=== PATIENT | male | born 1935 | race Two or more races ===

== ENCOUNTER → 2017-07-17 | Outpatient (CLI) | payer OTHER ==
[~2017-07-17] MED LIST: ANTIVERT25 M1 PO
== END | disposition home or self-care (01) ==
LOC: MRI 10:06
DX: M54.17 Radiculopathy, lumbosacral region (principal)
CPT/HCPCS: 72148

== ENCOUNTER 2018-06-16 08:57 | Outpatient (CLI) | payer OTHER ==
[2018-06-22] MEDS ORDERED: COZAAR50 MG (15:46)
== END 2018-06-16 09:09 | disposition home or self-care (01) ==
LOC: TOM 08:57
DX: R10.9 Unspecified abdominal pain (principal)

== ENCOUNTER → 2018-06-22 | Emergency (ER) | payer OTHER ==
[~2018-06-22] VITALS: Ht 170.2 cm; Wt 73.9 kg
[~2018-06-22] MED LIST changes: +COZAAR50 MG
== END | disposition home or self-care (01) ==
LOC: ER 14:54
DX: B34.9 Viral infection, unspecified (principal); J11.1 Influenza due to unidentified influenza virus with other respiratory manifestations

== ENCOUNTER → 2018-08-30 | Outpatient (CLI) | payer OTHER | END | disposition home or self-care (01) | LOC: TOM 09:26 | DX: R10.84 Generalized abdominal pain (principal) | CPT/HCPCS: 74178; Q9965 ==

== ENCOUNTER → 2018-09-06 | Outpatient (CLI) | payer OTHER | END | disposition home or self-care (01) | LOC: NUCLEAR 09-01 08:00 | DX: C61 Malignant neoplasm of prostate (principal) | CPT/HCPCS: 78306; 78320; A9503 ==

== ENCOUNTER 2019-11-04 10:02 | Outpatient (CLI) | payer OTHER | END 2019-11-04 10:07 | disposition home or self-care (01) | LOC: RAD 10:02 | PROVIDERS: ATTEND Internal Medicine Rheumatology | DX: M17.0 Bilateral primary osteoarthritis of knee (principal); M19.042 Primary osteoarthritis, left hand; M19.041 Primary osteoarthritis, right hand ==

== ENCOUNTER 2019-11-04 11:58 | Outpatient (CLI) | payer OTHER | END 2019-11-04 13:55 | disposition home or self-care (01) | LOC: LAB 11:58 | DX: Z20.828 Contact with and (suspected) exposure to other viral communicable diseases (principal); Z11.59 Encounter for screening for other viral diseases ==

== ENCOUNTER → 2019-11-18 | Outpatient (CLI) | payer OTHER | END | disposition home or self-care (01) | LOC: MRI 12:36 | PROVIDERS: ATTEND Neuromusculoskeletal Medicine, Sports Medicine | DX: M25.562 Pain in left knee (principal) | CPT/HCPCS: 73721 ==

== ENCOUNTER 2020-03-20 20:16 | Emergency (ER) | payer OTHER ==
[~2020-03-20] VITALS: Ht 172.7 cm; Wt 73.0 kg
[2020-03-21] MEDS ORDERED: INTESTINEX680 M1 PO (03:29)
[2020-03-21] MEDS ORDERED: CIPRO500 MG PO (03:29)
== END 2020-03-21 03:43 | disposition home or self-care (01) ==
LOC: ER 20:16
DX: K62.5 Hemorrhage of anus and rectum (principal); Z03.818 Encounter for observation for suspected exposure to other biological agents ruled out

== ENCOUNTER → 2020-05-25 | Outpatient (CLI) | payer OTHER ==
[~2020-05-25] MED LIST changes: +CIPRO500 MG PO; +INTESTINEX680 M1 PO
== END | disposition home or self-care (01) ==
LOC: PPH VACUNA 02:43
PROVIDERS: ATTEND Emergency Medicine Pediatric Emergency Medicine
DX: Z23 Encounter for immunization (principal)

== ENCOUNTER → 2020-11-20 08:33 | Outpatient (CLI) | payer OTHER | END | disposition home or self-care (01) | LOC: MRI 08:33 | DX: M25.511 Pain in right shoulder (principal); S43.491A Other sprain of right shoulder joint, initial encounter | CPT/HCPCS: 73221 ==

== ENCOUNTER 2020-12-13 10:29 | Outpatient (CLI) | payer OTHER | END 2020-12-13 15:00 | disposition home or self-care (01) | LOC: RAD 10:29 | PROVIDERS: ATTEND Internal Medicine Cardiovascular Disease | DX: M25.511 Pain in right shoulder (principal) ==

== ENCOUNTER 2021-02-08 08:00 | Outpatient (CLI) | payer OTHER | END 2021-02-08 08:30 | disposition home or self-care (01) | LOC: PPH VACUNA 08:00 | PROVIDERS: ATTEND Emergency Medicine Pediatric Emergency Medicine | DX: Z23 Encounter for immunization (principal) ==

== ENCOUNTER 2021-04-25 06:44 | Outpatient (CLI) | payer OTHER | END 2021-04-25 07:00 | disposition home or self-care (01) | LOC: MRI 06:44 | DX: D13.4 Benign neoplasm of liver (principal); K86.2 Cyst of pancreas | CPT/HCPCS: 74183; A9575 ==

== ENCOUNTER → 2021-05-20 11:14 | Outpatient (CLI) | payer OTHER | END | disposition home or self-care (01) | LOC: LAB 11:14 | PROVIDERS: ATTEND Emergency Medicine Pediatric Emergency Medicine | DX: Z03.818 Encounter for observation for suspected exposure to other biological agents ruled out (principal) ==

== ENCOUNTER 2021-10-07 13:30 | Outpatient (CLI) | payer OTHER | END 2021-10-07 13:40 | disposition home or self-care (01) | LOC: PPH VACUNA 13:30 | PROVIDERS: ATTEND Emergency Medicine Pediatric Emergency Medicine | DX: Z23 Encounter for immunization (principal) ==

== ENCOUNTER 2021-10-15 11:09 | Outpatient (CLI) | payer OTHER | END 2021-10-15 23:00 | disposition home or self-care (01) | LOC: LAB 11:09 | PROVIDERS: ATTEND Emergency Medicine Pediatric Emergency Medicine | DX: Z20.828 Contact with and (suspected) exposure to other viral communicable diseases (principal) ==

== ENCOUNTER → 2021-10-16 | Outpatient (CLI) | payer OTHER | END | disposition home or self-care (01) | LOC: ASH CLINIC 08:00 | PROVIDERS: ATTEND Emergency Medicine | DX: U07.1 COVID-19 (principal) ==

== ENCOUNTER 2021-11-07 09:49 | Outpatient (CLI) | payer OTHER | END 2021-11-07 10:20 | disposition home or self-care (01) | LOC: TOM 09:49 | PROVIDERS: ATTEND Specialist | DX: R97.21 Rising PSA following treatment for malignant neoplasm of prostate (principal); C61 Malignant neoplasm of prostate ==

== ENCOUNTER → 2021-11-13 | Outpatient (CLI) | payer OTHER | END | disposition home or self-care (01) | LOC: NUCLEAR 11-08 07:45 | PROVIDERS: ATTEND Specialist | DX: C61 Malignant neoplasm of prostate (principal) | CPT/HCPCS: 78306; A9503 ==

== ENCOUNTER 2022-01-29 13:24 | Outpatient (CLI) | payer OTHER | END 2022-01-29 13:34 | disposition home or self-care (01) | LOC: PPH VACUNA 13:24 | PROVIDERS: ATTEND Emergency Medicine Pediatric Emergency Medicine | DX: Z23 Encounter for immunization (principal) ==

== ENCOUNTER 2022-08-19 12:51 | Outpatient (CLI) | payer OTHER | END 2022-08-19 12:52 | disposition home or self-care (01) | LOC: LAB 12:51 | PROVIDERS: ATTEND Obstetrics & Gynecology | DX: Z20.828 Contact with and (suspected) exposure to other viral communicable diseases (principal); Z20.818 Contact with and (suspected) exposure to other bacterial communicable diseases ==

== ENCOUNTER 2022-12-17 12:08 | Emergency (ER) | payer OTHER ==
[~2022-12-17] VITALS: Ht 175.3 cm; Wt 68.5 kg
[~2022-12-17 12:08] MED LIST changes: -COZAAR50 MG; +COZAAR50 MG PO
[2022-12-17] MEDS ORDERED: MECLIZINE HCL25 M1 PO (14:30)
== END 2022-12-17 15:53 | disposition home or self-care (01) ==
LOC: ER 12:08
DX: R42 Dizziness and giddiness (principal); Z88.6 Allergy status to analgesic agent; I10 Essential (primary) hypertension; Z85.89 Personal history of malignant neoplasm of other organs and systems; Z20.822 Contact with and (suspected) exposure to COVID-19

== ENCOUNTER 2023-01-03 06:00 | Emergency (ER) | payer OTHER ==
[~2023-01-03] VITALS: Ht 175.3 cm; Wt 68.9 kg
[~2023-01-03 06:00] MED LIST changes: +MECLIZINE HCL25 M1 PO
[2023-01-03] MEDS ORDERED: COZAAR100 MG PO (06:13)
== END 2023-01-03 11:17 | disposition home or self-care (01) ==
LOC: ER 06:00
DX: R42 Dizziness and giddiness (principal); J40 Bronchitis, not specified as acute or chronic; I10 Essential (primary) hypertension; Z88.6 Allergy status to analgesic agent
CPT/HCPCS: 36415; 71250; 93005; 96365; 99284; J3490

== ENCOUNTER 2023-04-07 23:32 | Emergency (ER) | payer OTHER ==
[~2023-04-07] VITALS: Ht 175.3 cm; Wt 69.4 kg
[~2023-04-07 23:32] MED LIST changes: +COZAAR100 MG PO
[2023-04-08] MEDS ORDERED: DOLOGESIC-DF 51 EACH PO (01:27)
== END 2023-04-08 01:36 ==
LOC: ER 23:32
DX: M79.622 Pain in left upper arm (principal); Z88.6 Allergy status to analgesic agent

== ENCOUNTER 2023-07-13 11:28 | Outpatient (CLI) | payer OTHER ==
[~2023-07-13 11:28] MED LIST changes: +DOLOGESIC-DF 51 EACH PO
== END 2023-07-13 14:02 | disposition home or self-care (01) ==
LOC: LAB 11:28
DX: Z20.818 Contact with and (suspected) exposure to other bacterial communicable diseases (principal); Z20.828 Contact with and (suspected) exposure to other viral communicable diseases

== ENCOUNTER 2023-07-16 09:09 | Outpatient (CLI) | payer OTHER | END 2023-07-16 10:29 | disposition home or self-care (01) | LOC: LAB 09:09 | DX: R05.9 Cough, unspecified (principal) ==

== ENCOUNTER 2024-06-06 14:01 | Outpatient (CLI) | payer OTHER ==
[~2024-06-06 14:01] MED LIST changes: +VOLTAREN ARTHRI20 GM TOP
== END 2024-06-06 15:03 | disposition home or self-care (01) ==
LOC: LAB 14:01
DX: Z20.828 Contact with and (suspected) exposure to other viral communicable diseases (principal)

== ENCOUNTER 2024-10-21 20:06 | Emergency (ER) | payer OTHER ==
[~2024-10-21] VITALS: Ht 152.4 cm; Wt 68.0 kg
[2024-10-21 20:53] LABS: BASO % 0.7 % (0.1-1.2); EOS # 0.19 (0.04-0.54); EOS % 3.4 % (0.7-7.0); HEMATOCRIT 36.3 % (40.1-51.0); HEMOGLOBIN 12.3 g/dL (13.7-17.5); LYMPH # 1.62 (1.18-3.74); LYMPH % 29.1 % (19.3-53.1); MEAN CORPUSCULAR HEMOGLOBIN 31.5 pg (25.6-32.2); MONO # 0.56 (0.24-0.82); MONO % 10.1 % (4.7-12.5); NEUT # 3.15 (1.56-6.13); NEUT % 56.7 % (34.0-71.1); PLATELET COUNT 214 K/uL (163-369); RED BLOOD COUNT 3.91 M/uL (4.63-6.08); RED CELL DISTRIBUTION WIDTH 13.6 % (11.6-14.4)
[2024-10-21 21:33] LABS: ALBUMIN 3.7 gm/dL (3.4-5.0); BILIRUBIN TOTAL 0.53 mg/dL (0.3-1.2); CREATININE SERUM 0.9 mg/dL (0.70-1.30); GFR 79.82; GLOBULINA 3.1 G/DL (2.4-3.5); POTASSIUM 3.85 mEq/L (3.5-5.1); TOTAL PROTEIN 6.8 gm/dL (6.4-8.2)
== END 2024-10-21 21:45 | disposition home or self-care (01) ==
LOC: ER 20:06
PROVIDERS: General Practice
DX: R07.9 Chest pain, unspecified (principal); Z88.6 Allergy status to analgesic agent

== ENCOUNTER 2024-12-15 10:46 | Outpatient (CLI) | payer OTHER | END 2024-12-15 10:49 | disposition home or self-care (01) | LOC: LAB 10:46 | PROVIDERS: ATTEND Preventive Medicine Public Health & General Preventive Medicine | DX: R05.9 Cough, unspecified (principal) ==

== ENCOUNTER 2024-12-16 10:36 | Outpatient (CLI) | payer OTHER | END 2024-12-16 10:41 | disposition home or self-care (01) | LOC: LAB 10:36 | PROVIDERS: ATTEND Preventive Medicine Public Health & General Preventive Medicine | DX: R05.9 Cough, unspecified (principal) ==

== ENCOUNTER 2025-03-15 11:04 | Outpatient (CLI) | payer OTHER | END 2025-03-15 13:30 | disposition home or self-care (01) | LOC: LAB 11:04 | PROVIDERS: ATTEND Obstetrics & Gynecology | DX: R05.9 Cough, unspecified (principal) ==

== ENCOUNTER 2025-05-06 04:18 | Emergency (ER) | payer OTHER ==
[~2025-05-06] VITALS: Ht 172.7 cm; Wt 70.3 kg
[2025-05-06] MEDS ORDERED: ORPHENADRINE CITRATE 30 MG/ML AMPUL IM STA (04:37)
[2025-05-06] MEDS ORDERED: DEXAMETHASONE SODIUM PHOSPHATE 4 MG/ML VIAL IM STA (04:37)
[2025-05-06] MEDS ORDERED: DEXAMETHASONE SODIUM PHOSPHATE 4 MG/ML VIAL ONE (04:41)
[2025-05-06] MEDS ORDERED: ORPHENADRINE CITRATE 30 MG/ML AMPUL ONE (04:41)
== END 2025-05-06 05:30 | disposition home or self-care (01) ==
LOC: ER 04:18
DX: M54.2 Cervicalgia (principal); Z88.6 Allergy status to analgesic agent; Z86.73 Personal history of transient ischemic attack (TIA), and cerebral infarction without residual deficits; I10 Essential (primary) hypertension
CPT/HCPCS: 72040; 96372; 99283; J1100; J2360